=== PATIENT | female | born 1990 | race Asian ===

== ENCOUNTER → 2016-08-10 | Outpatient (CLI) | payer OTHER | END | disposition home or self-care (01) | LOC: CFH 13:58 | PROVIDERS: ATTEND Nurse Practitioner | DX: N93.0 Postcoital and contact bleeding (principal) | CPT/HCPCS: 76856 ==

== ENCOUNTER 2017-08-15 02:01 | Outpatient (CLI) | payer OTHER ==
[~2017-08-15] VITALS: Ht 154.9 cm; Wt 90.4 kg
== END 2017-08-15 04:17 | disposition home or self-care (01) ==
LOC: LDOP 02:01
PROVIDERS: ATTEND Obstetrics & Gynecology
DX: O26.893 Other specified pregnancy related conditions, third trimester (principal); R10.9 Unspecified abdominal pain; Z3A.39 39 weeks gestation of pregnancy
CPT/HCPCS: 59025; 99211; G0463

== ENCOUNTER 2017-08-19 06:25 | Inpatient (IN) | payer OTHER ==
[~2017-08-19] VITALS: Ht 154.9 cm; Wt 90.5 kg
[2017-08-19 07:18] VITALS: BP 102/62
[2017-08-19] MEDS ORDERED: D5%-LACTATED RINGERS 1,000 ML IV SCH (09:41)
[2017-08-19] MEDS ORDERED: OXYTOCIN 30U/ 0.9% NaCL 500ML 500 ML IV ONE (09:41)
[2017-08-19] MEDS ORDERED: ONDANSETRON 2MG/ML, 2ML IVPush PRN (10:00)
[2017-08-19] MEDS ORDERED: FENTANYL PF 100 MCG/2ML IVPush PRN (10:00)
[2017-08-19 10:04] LABS: BASOPHILS # (AUTO) 0.03 x10^3/uL (0-0.1); BASOPHILS % (AUTO) 0 % (0-1); EOSINOPHILS # (AUTO) 0.04 x10^3/uL (0-0.4); EOSINOPHILS % (AUTO) 0 % (1-7); LYMPHOCYTES # (AUTO) 1.59 x10^3/uL (1-3.4); LYMPHOCYTES % (AUTO) 11 % (22-44); MD NO; MEAN CORPUSCULAR HEMOGLOBIN 30.4 pg (27.0-34.8); MEAN CORPUSCULAR HGB CONC 33.7 g/dL (32.4-35.8); MEAN CORPUSCULAR VOLUME 90.1 fL (80-100); MONOCYTES # (AUTO) 0.66 x10^3/uL (0.2-0.8); MONOCYTES % (AUTO) 4 % (2-9); NEUTROPHILS # (AUTO) 12.91 x10^3/uL (1.8-6.8); NEUTROPHILS % (AUTO) 85 % (42-75); PLATELET COUNT 208 x10^3/uL (130-400); RED BLOOD COUNT 4.56 x10^6/uL (3.82-5.3); RED CELL DISTRIBUTION WIDTH 13.3 % (9.6-15.2)
[2017-08-19] MEDS: LACTATED RINGERS 1,000 ML IV SCH ×2 (10:17→10:20)
[2017-08-19] MEDS ORDERED: OXYTOCIN 30U/ 0.9% NaCL 500ML 500 ML ONE (10:35)
[2017-08-19] MEDS ORDERED: NEWBORN KIT ONE (10:36)
[2017-08-19] MEDS ORDERED: BUPIVACAINE 0.25% ONE (10:43)
[2017-08-19] MEDS ORDERED: FENTANYL/BUPIV./NS/PF 250 ML EPIDCONT ONE (10:43)
[2017-08-19] MEDS ORDERED: LACTATED RINGERS 1,000 ML IV SCH (11:09)
[2017-08-19] MEDS ORDERED: FENTANYL/BUPIV./NS/PF 250 ML EPIDCONT SCH (11:09)
[2017-08-19] MEDS ORDERED: LACTATED RINGERS 1,000 ML IVBOLUS PRN (11:30)
[2017-08-19] MEDS ORDERED: EPHEDRINE 50 MG/ML, 1ML IVPush PRN (11:30)
[2017-08-19] MEDS ORDERED: OXYTOCIN 30U/ 0.9% NaCL 500ML 500 ML IV PRN (14:59)
[2017-08-19] MEDS ORDERED: MISOPROSTOL 200 MCG TABLET ONE (22:46)
[2017-08-20] VITALS (7 sets, daily range): BP systolic 93–115; BP diastolic 60–76
[2017-08-20] MEDS ORDERED: GLYCERIN ADULT SUPP PR PRN
[2017-08-20] MEDS ORDERED: DIPH,PERTUSS(ACELL),TET VAC/PF NC IM-VACC PRN
[2017-08-20] MEDS ORDERED: OXYcodone IR 5MG TABLET PO PRN ×2
[2017-08-20] MEDS ORDERED: METHYLERGONOVINE 0.2 MG/ML IM PRN
[2017-08-20] MEDS ORDERED: ONDANSETRON 2MG/ML, 2ML IV PRN
[2017-08-20] MEDS ORDERED: MAGNESIUM HYDROXIDE 8%, 30ML UDC PO PRN
[2017-08-20] MEDS ORDERED: CARBOPROST TROMETHAMINE 250 MCG/ML, 1ML IM PRN
[2017-08-20] MEDS ORDERED: MEASLES,MUMPS&RUBELLA VACC/PF 0.5 ML SQ PRN
[2017-08-20] MEDS ORDERED: MISOPROSTOL 200 MCG TABLET PR PRN
[2017-08-20] MEDS ORDERED: CALCIUM CARBONATE 500 MG TAB.CHEW PO PRN
[2017-08-20] MEDS ORDERED: BISACODYL 10 MG SUPP PR PRN
[2017-08-20] MEDS ORDERED: METOCLOPRAMIDE 5 MG/ML, 2ML IV PRN
[2017-08-20] MEDS ORDERED: OXYTOCIN 30U/ 0.9% NaCL 500ML 500 ML ONE (00:02)
[2017-08-20] MEDS: OXYTOCIN 30U/ 0.9% NaCL 500ML 500 ML IV SCH ×3 (00:06→19:35)
[2017-08-20 07:55] LABS: BASOPHILS # (AUTO) 0.04 x10^3/uL (0-0.1); BASOPHILS % (AUTO) 0 % (0-1); EOSINOPHILS # (AUTO) 0.03 x10^3/uL (0-0.4); EOSINOPHILS % (AUTO) 0 % (1-7); LYMPHOCYTES # (AUTO) 1.66 x10^3/uL (1-3.4); LYMPHOCYTES % (AUTO) 8 % (22-44); MD SCAN; MEAN CORPUSCULAR HEMOGLOBIN 30.5 pg (27.0-34.8); MEAN CORPUSCULAR HGB CONC 34.2 g/dL (32.4-35.8); MEAN CORPUSCULAR VOLUME 89.3 fL (80-100); MEAN PLATELET VOLUME 8.2 fL (7.4-10.4); MONOCYTES # (AUTO) 1.16 x10^3/uL (0.2-0.8); MONOCYTES % (AUTO) 6 % (2-9); NEUTROPHILS # (AUTO) 17.92 x10^3/uL (1.8-6.8); NEUTROPHILS % (AUTO) 86 % (42-75); PLATELET COUNT 208 x10^3/uL (130-400); RED BLOOD COUNT 4.08 x10^6/uL (3.82-5.3); RED CELL DISTRIBUTION WIDTH 13.7 % (9.6-15.2)
[2017-08-20] MEDS: PRENATAL VIT/IRON/FA 1 EACH TABLET PO SCH (09:04)
[2017-08-20] MEDS: DOCUSATE 100 MG CAPSULE PO PRN (09:04)
[2017-08-21 00:20] VITALS: BP 110/71
[2017-08-21] MEDS: OXYTOCIN 30U/ 0.9% NaCL 500ML 500 ML IV SCH (05:33)
[2017-08-21 07:00] VITALS: BP 122/81
[2017-08-21] MEDS ORDERED: IBUP-1222 PO (08:26)
[2017-08-21] MEDS: PRENATAL VIT/IRON/FA 1 EACH TABLET PO SCH (09:46)
[2017-08-21] MEDS: DOCUSATE 100 MG CAPSULE PO PRN (09:46)
== END 2017-08-21 12:30 | disposition home or self-care (01) | DRG 775 ==
LOC: LDOP 06:25 → LDIP 09:45 → 2NW 08-20 02:08
PROVIDERS: ADMIT Obstetrics & Gynecology; ATTEND Obstetrics & Gynecology
PROC: 10E0XZZ Delivery of Products of Conception, External Approach (ICD-10-PCS; principal; 2017-08-19)
PROC: 0HQ9XZZ Repair Perineum Skin, External Approach (ICD-10-PCS; 2017-08-19)
PROC: 3E0R3BZ Introduction of Anesthetic Agent into Spinal Canal, Percutaneous Approach (ICD-10-PCS; 2017-08-19)
PROC: 00HU33Z Insertion of Infusion Device into Spinal Canal, Percutaneous Approach (ICD-10-PCS; 2017-08-19)
DX: O70.0 First degree perineal laceration during delivery (principal); Z37.0 Single live birth; Z3A.40 40 weeks gestation of pregnancy; Z88.6 Allergy status to analgesic agent
CPT/HCPCS: 36415; 85025; 86850; 86900; J2590; J7120; J7121